=== PATIENT | male | born 1965 | race Caucasian/White ===

== ENCOUNTER 2023-12-08 15:24 | Emergency (ER) | payer OTHER ==
[~2023-12-08] VITALS: Ht 175.3 cm; Wt 72.7 kg
[~2023-12-08 15:24] MED LIST: AMBIEN 10MG10 MG PO; WELLBUTRIN XL150 MG PO
[2023-12-08 15:33] VITALS: BP 145/91; TEMP 97.9
[2023-12-08] MEDS ORDERED: NORCO 325 MG-51 TAB PO (17:35)
[2023-12-08 17:45] VITALS: PULSE 72
== END 2023-12-08 17:45 | disposition home or self-care (01) ==
LOC: COL.ER 15:24
DX: S09.90XA Unspecified injury of head, initial encounter (principal); S51.011A Laceration without foreign body of right elbow, initial encounter; S00.33XA Contusion of nose, initial encounter; W22.8XXA Striking against or struck by other objects, initial encounter